=== PATIENT | male | born 1940 | race Caucasian/White ===

== ENCOUNTER 2020-09-07 17:03 | Emergency (ER) | payer MEDICARE, OTHER, SELFPAY ==
[2020-09-07] VITALS (17 sets, daily range): BP systolic 115–157; BP diastolic 70–99; PULSE 67–100; RESP 18–23; TEMP 37.4; O2SAT 95–98
--- NOTE | ~2020-09-07 | CT_ITS ---
EXAMINATION: CTA chest PE protocol EXAM DATE: 09/07/2020 19:35 INDICATION: SOB, multiple myeloma, elevated dimer. TECHNIQUE: Spiral CTA of the chest (pulmonary arteries) was performed with 100 cc Omnipaque 350 intr avenous contrast injection. Images were acquired during the pulmonary arterial phase. Coronal maxi mum intensity projection 3D-reconstructions were created by the technologist on dedicated workstation . Axial, coronal and sagittal reformatted images were reviewed. The dose-length product (DLP) for t his examination was 565.64 mGy-cm. The exposure was tailored according to patient size (auto mA exp osure control), and iterative reconstruction (ASIR) was used as additional dose reduction technique. There is no prior study for comparison. FINDINGS: There are no pulmonary emboli in the 1st through 3rd order (central and interlobar) pulmon fatemeh arteries. Some loss of attenuation in the segmental pulmonary arteries due to respiratory motion . Tiny right upper lobe region decreased attenuation on only 2 images, probably artifact. There is moderate left pleural effusion. There is also a loculation of pleural fluid in the left eliu r fissure which accounts for the sizable opacity on chest x-ray. There is left lower lobe segmental a telectasis, and also some regions of heterogeneous enhancement which could be acute infection. There is also a spiculated nodule in the anterior aspect of the right upper lobe abutting the pericar dial surface, possible primary lung cancer. There is a smaller pleural-based nodule in the right midd le lobe measuring 6 mm. Pleural-based left upper lobe nodule measuring 1.7 cm. Several other pulmonar y nodules. No thoracic aortic dissection. Tracheobronchial tree is patent. There is no mediastinal, hilar or axillary lymphadenopathy. There is no pneumothorax. There is cardiomegaly. Small amount of perih epatic ascites. Multiple thoracic compression fractures. IMPRESSION: 1. Limited segmental evaluation, but no pulmonary emboli are suspected. 2. Moderate left pleural effusion with adjacent left basilar segmental atelectasis. Possible superim posed left lower lobe pneumonia. 3. Scattered pulmonary nodules up to 1.7 cm, this largest one most concerning for possibility of mal ignancy. 4. Multiple thoracic compression fractures. 5. Cardiomegaly. Reviewed, dictated and finalized at location A. IMPRESSION: 1. Limited segmental evaluation, but no pulmonary emboli are suspected. 2. Moderate left pleural effusion with adjacent left basilar segmental atelect asis. Possible superimposed left lower lobe pneumonia. 3. Scattered pulmonary nodules up to 1.7 cm, this largest one most concerning for possibility of malignancy. 4. Multiple thoracic compression fractures. 5. Cardiomegaly.
--- NOTE | ~2020-09-07 | XR_ITS ---
EXAMINATION: XR chest 1V portable EXAM DATE: 09/07/2020 18:27 INDICATION: sob, WEAKNESS, AFIB, HTN TECHNIQUE: Portable AP frontal chest x-ray was obtained. There is no prior study for comparison. FINDINGS: Sternotomy. There is single lead pacemaker/AICD device seen with tip projecting over the ex pected location of right ventricle. There is cardiopulmonary gland pulmonary vascular congestion. Sma ll left pleural effusion. Patchy left-sided airspace disease probably edema or pneumonia. The bones a re osteopenic. There are bony degenerative changes. IMPRESSION: 1. Congestive changes. 2. Patchy left-sided edema or pneumonia. 3. Small left pleural effusion. Reviewed, dictated and finalized at location A.
[2020-09-07 17:31] LABS: Glucose Point of Care 93 (65-105)
--- NOTE | 2020-09-07 17:35 | ECG_ITS ---
Measurements Intervals [place] Rate: 99 P: -54 SC: 175 QRS: 56 QRSD: 88 T: 23 QT: 333 QTc: 429 Interpretive Statements ECTOPIC ATRIAL RHYTHM BORDERLINE ST-T WAVE ABNORMALITY- INF/LAT LEADS BASELINE ARTIFACT- I, II, III, AVR, AVL, AVF ABNORMAL ECG Electronically Signed On 09-08-2020 6:58:58 CDT by Lewis Irving D.O.
[2020-09-07 17:49] LABS: Basophils Percent Auto 0.3 % (0.2-1.2); Eosinophils Percent Auto 0.3 % (0-4.4); Hematocrit 26.1 % (42.0-52.0); Hemoglobin 8.2 g/dL (14.0-18.0); Immature Granulocyte Absolute 0.08 K/mm3 (0.00-0.031); Immature Granulocyte Percent A 0.6 % (0-0.5); Lymphocytes Absolute Auto 2.11 K/mm3 (0.9-3.2); Lymphocytes Percent Auto 15.3 % (18.3-44.2); Mean Corpuscular HGB Conc 31.4 g/dl (32-36); Mean Corpuscular Hemoglobin 29.6 pg (26-34); Mean Corpuscular Volume 94.2 fl (80-100); Mean Platelet Volume 11.2 fl (7.4-10.4); Monocytes Absolute Auto 1.2 K/mm3 (0.1-0.6); Monocytes Percent Auto 8.6 % (2.6-8.5); Neutrophils Absolute Auto 10.4 K/mm3 (1.3-6.7); Neutrophils Percent Auto 74.9 % (45.5-73.1); Platelet Count Result 312 k/mm3 (150-375); Red Blood Count 2.77 M/mm3 (4.6-6.20); Red Cell Distribution Width 16.5 % (11.5-14.5); White Blood Count 13.8 K/mm3 (4.5-10.0)
--- NOTE | 2020-09-07 17:55 | ED.WEAKNESS ---
HPI - Weakness General Chief complaint: Weakness Stated complaint: Weakness Time Seen by Provider: 09/07/20 17:22 Source: patient Mode of arrival: EMS Limitations: other (patient is a poor historian) History of Present Illness HPI Narrative: This is a 79 year old male that presents to the ER for generalized weakness. Also reports shortness of breath. Reports he was recently admitted to [facility] and discharged today. Per EMS patient's was unable to care for him at home. Denies fever, cough, chest pain, abdominal pain, vomiting, or dsyuria. Related Data Home Medications Medication Instructions Recorded Confirmed lancets 30 gauge #25 each 10/05/19 08/14/20 acyclovir 400 mg tablet 400 mg PO BID 08/14/20 08/14/20 warfarin 6 mg tablet 3 mg PO ONCE tablet 08/14/20 08/14/20 Allergies Allergy/AdvReac Type Severity Reaction Status Date / Time No Known Allergies Allergy Verified 09/07/20 17:34 Review of Systems Review of Systems: Narrative: CONSTITUTIONAL: Denies fever CARDIOVASCULAR: Denies chest pain, or edema. RESPIRATORY: Reports dyspnea. Denies cough GASTROINTESTINAL: Denies abdominal pain, nausea, vomiting GENITOURINARY: Denies dysuria NEUROLOGIC: Reports generalized weakness. 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 Hernia Hyperlipidemia Hypertension Hypertriglyceridemia Multiple myeloma Peripheral vascular disease Sexual dysfunction Type 2 diabetes mellitus Family History Family History (Updated 10/05/19 @ 07:27 by Temitope Gallagher [facility]) Mother Carcinoma of colon Father Respiratory failure Social History Social History (Updated 10/05/19 @ 13:24 by Temitope Gallagher [facility]) Smoking status: Former smoker Smoking end date: 11/17/04 Alcohol intake: never Substance use: never Exam Narrative: Exam Narrative: GENERAL: Chronically ill-appearing, thin, and in no acute distress. HEAD: Normocephalic, atraumatic. EYES: PERRLA and EOMI. ENT: Nares clear, no rhinorrhea or epistaxis. Mucous membranes dry. Oropharynx without tonsillar hypertrophy exudate or other lesions. Bilateral TMs pearly petersen non-bulging NECK: Supple. No adenopathy or masses. CHEST: Clear to auscultation. No respiratory distress. No wheezes rales or rhonchi HEART: Regular rate and rhythm. No murmur heard. Normal peripheral pulses. ABDOMEN: Soft, nontender, nondistended, normal active bowel sounds. EXTREMITIES: Normal range of motion. No edema. SKIN: Warm, dry, no rash. NEURO: No focal deficits. Alert and oriented x3. PSYCH: Normal mood and affect Course Consultations Consultation #1: Spoke with Dr. Bradshaw about patient and work-up. Agrees patient would be better served at [facility] for further work-up and treatment Date: 09/07/20 Time: 23:01 Consultation #2: Spoke with Dr. Sanford, hospitalist at [facility] who accepts transfer Date: 09/07/20 Time: 23:02 Vital Signs Vital signs: Vital Signs Pulse Rate 99 09/07/20 17:19 Respiratory Rate 23 H 09/07/20 17:19 Blood Pressure 142/73 H 09/07/20 17:19 Pulse Oximetry 96 09/07/20 17:19 Temperature 99.3 F 09/07/20 17:21 Pulse Rate 71 09/07/20 21:11 Respiratory Rate 18 09/07/20 21:11 Blood Pressure 157/73 H 09/07/20 21:11 Pulse Oximetry 98 09/07/20 21:11 MDM - Weakness MDM Narrative Medical decision making narrative: Patient presents to the emergency department for generalized weakness and shortness of breath. Has history of multiple myeloma. His oncologist is Dr. Tray Bradshaw. Patient was recently admitted and discharged from [facility]. It seems family was not able to care for him at home. Patient is afebrile and nontoxic-appearing. Oxygen saturation has
[2020-09-07 18:01] LABS: Alanine Aminotransferase 41 U/L (4-50); Albumin Level 2.9 g/dL (3.5-5.1); Alkaline Phosphatase 270 U/L (38-126); Anion Gap 8 mmol/L (8-16); Aspartate Amino Transferase 50 U/L (17-59); Bilirubin,Total 0.4 mg/dL (0.2-1.3); Blood Urea Nitrogen 38 mg/dL (9-20); Calcium 9.1 mg/dL (8.4-10.2); Carbon Dioxide 19 mmol/L (22-30); Chloride 110 mmol/L (98-107); Estimated Glomerular Filt Rate 35; Glucose 109 mg/dL (75-110); Potassium 5.3 mmol/L (3.4-5.0); Sodium 137 mmol/L (137-145)
[2020-09-07 18:06] LABS: Alveolar/Arterial O2 Gradient 54.6 mmHg; Base Excess ABG -9.4 mEq/l (+/-2.0); Carboxyhemoglobin 0.9 % THb (0-2.0); Fractional Inspired Oxygen 21 %; HCO3 ABG 13.2 mEq/l (22.0-26.0); Methemoglobin ABG 0.1 %THb (0-1.5); Oxygen Content ABG 11.4 %vol (16.0-22.0); Oxygen Saturation ABG 95.4 % (95.0-100.0); Oxyhemoglobin 92.6 % THb (90.0-100.0); PO2 ABG 71.4 mmHg (80.0-100.0); Reduced Hemoglobin 6.4 %THb (0-5.0); Total Hemoglobin 8.7 g/dL (12.0-18.0); pH ABG 7.442 (7.350-7.450)
[2020-09-07 18:08] LABS: Device ROOM AIR; PCO2 ABG 19.8 mmHg (35.0-45.0); Site Drawn LEFT BRACHIAL
[2020-09-07 18:19] LABS: Prothrombin Time 22.2 Seconds (11.1-14.7)
[2020-09-07 18:20] LABS: Partial Thromboplastin Time 51.4 SECONDS (22.3-36.8)
[2020-09-07 18:22] LABS: D Dimer 1.69 ug/mL (<0.48)
[2020-09-07 18:25] LABS: NT Pro B Type Natriuretic Pept 5310 PG/ML (5-100)
[2020-09-07 18:25] LABS: Lactic Acid Reflex 1.9 mmol/L (0.7-2.1)
[2020-09-07 18:32] LABS: CRP 12.3 mg/dL (<1.0)
[2020-09-07] MEDS: SODIUM CHLORIDE 0.9% IV 1,000 ML 999 ML IV CONT (18:49)
[2020-09-07] MEDS: HYDROcodone/acetaminophen (*CRX) 5-325 MG TABLET 1 TAB PO (19:46)
[2020-09-07 20:01] LABS: Add Urine Microscopic? YES; Appearance Urine Cloudy (Clear); Bacteria Urine Trace /hpf; Bilirubin Urine Negative (Negative); Blood Urine Negative (Negative); Budding Yeast Urine Present /hpf; Color Urine Yellow (Yellow); Glucose Urine UA Negative (Negative); Ketones Urine Negative (Negative); Leukocyte Esterase Ur 3+ LEU/UL (Negative); Mucus Urine Rare /lpf; Nitrate Urine Negative (Negative); Protein Urine 2+ mg/dL (Negative); Specific Grav Ur 1.015 (1.001-1.035); Urobilinogen Urine Negative mg/dL (<2.0); WBC Urine >75 /hpf
[2020-09-07] MEDS: ONDANSETRON INJ 4 MG/2 ML VIAL IV PUSH (22:06)
[2020-09-07] MEDS: MORPHINE SULFATE (*CRX) 4 MG/ML INJ IV PUSH (22:06)
--- NOTE | 2020-09-07 22:51 | PC.NURSE ---
Per Gustavo Chahal at [facility]. pt accepted by Dr. Kings Sanford. Room assignment 442, Taryn Gordon RN is the receiving RN. Please call report to [phone].
[2020-09-08 00:59] VITALS: BP 127/67; PULSE 60; RESP 16; O2SAT 98
--- NOTE | 2020-09-20 22:13 | PC.NURSE ---
Late entry Ceftriaxone was stopped at 2036 on 09/07/20.
== END 2020-09-08 01:15 | disposition short-term general hospital (02) ==
PROVIDERS: Physician Assistant; Emergency Provider Emergency Medicine; PCP Internal Medicine
DX: J18.9 Pneumonia, unspecified organism (principal); C90.00 Multiple myeloma not having achieved remission; E87.5 Hyperkalemia; J90 Pleural effusion, not elsewhere classified; R91.1 Solitary pulmonary nodule; I48.20 Chronic atrial fibrillation, unspecified; Z79.01 Long term (current) use of anticoagulants; J44.9 Chronic obstructive pulmonary disease, unspecified; E78.5 Hyperlipidemia, unspecified; I10 Essential (primary) hypertension; E78.1 Pure hyperglyceridemia; I73.9 Peripheral vascular disease, unspecified; E11.9 Type 2 diabetes mellitus without complications; Z87.891 Personal history of nicotine dependence; R06.02 Shortness of breath; Z95.0 Presence of cardiac pacemaker; R94.31 Abnormal electrocardiogram [ECG] [EKG]
CPT/HCPCS: 36415; 36600; 71045; 71275; 80053; 81001; 82375; 82805; 82948; 83050; 83605; 83880; 85025; 85380; 85610; 85730; 86140; 87040; 87086; 93005; 96361; 96374; 96375; 99285; A9270; J0696; J2270; J2405; J7030; Q9967